=== PATIENT | female | born 1940 | race Caucasian/White ===

== ENCOUNTER 2019-09-05 11:25 | Inpatient (IN) | payer OTHER, MEDICAID ==
[~2019-09-05] VITALS: Ht 165.1 cm; Wt 50.8 kg
[2019-09-05] MEDS ORDERED: CELEXA 10 MG TA10 M1 PO (11:31)
[2019-09-05] MEDS ORDERED: NORCO 10-325 T1 EACH PO (11:31)
[2019-09-05] MEDS ORDERED: NORVASC 2.5 MG2.5 M1 PO (11:31)
[2019-09-05] MEDS ORDERED: TRAZODONE 150150 M1 PO (11:31)
[2019-09-05] MEDS ORDERED: BACLOFEN5 MG PO (11:31)
[2019-09-05 11:38] VITALS: BP 223/78
[2019-09-05 11:57] LABS: ABSOLUTE EOSINOPHILS 0.1 thou/uL (0.0-0.7); ABSOLUTE LYMPHOCYTES 1.3 thou/uL (0.8-5.3); ABSOLUTE MONOCYTES 0.5 thou/uL (0.0-1.2); ABSOLUTE NEUTROPHILS 5.8 thou/uL (1.6-8.1); BASOPHILS 0.4 %; EOSINOPHILS 1.4 %; HEMATOCRIT 42.9 % (37.0-47.0); HEMOGLOBIN 14.6 gm/dL (12.0-15.0); MCH 33.4 pg (26.0-34.0); MCV 98.4 fL (80.0-100.0); MONOCYTES 6.3 %; MPV 7.7 fl. (7.2-11.1); NUCLEATED RBCS 0 /100WBC; PLATELET COUNT* 257 thou/uL (150-400); POLYS 74.9 %; RBC 4.36 mil/uL (4.20-5.00); RDW-CV 12.9 % (10.5-14.5); WBC 7.7 thou/uL (4.0-11.0)
[2019-09-05 12:07] LABS: URINE BILIRUBIN NEGATIVE (Negative); URINE BLOOD TRACE (Negative); URINE CLARITY CLEAR; URINE COLOR YELLOW; URINE GLUCOSE-RANDOM NEGATIVE (Negative); URINE KETONES TRACE (Negative); URINE LEUKOCYTES-REFLEX NEGATIVE (Negative); URINE NITRITE-REFLEX NEGATIVE (Negative); URINE PROTEIN TRACE (Negative); URINE SPECIFIC GRAVITY 1.015 (1.005-1.030); URINE UROBILINOGEN 0.2 E.U./dl (0.2-1.0)
[2019-09-05 12:09] LABS: CALCIUM 9.5 mg/dL (8.5-10.1); CREATININE 0.6 mg/dL (0.6-1.3); POTASSIUM 3.4 mmol/L (3.5-5.1)
[2019-09-05 12:19] LABS: ALBUMIN 4.4 g/dL (3.4-5.0); TOTAL BILIRUBIN 0.7 mg/dL (<0.1-1.0); TOTAL PROTEIN 7.8 g/dL (6.4-8.2)
[2019-09-05 15:36] VITALS: BP 168/78
[2019-09-05 16:15] VITALS: BP 173/74
[2019-09-05 20:10] VITALS: BP 187/64
[2019-09-06] VITALS: BP 169/63
[2019-09-06 04:04] VITALS: BP 157/53
[2019-09-06 08:00] VITALS: BP 171/85
[2019-09-06 11:55] VITALS: BP 132/55
[2019-09-06 13:22] LABS: CALCIUM 9.7 mg/dL (8.5-10.1); CREATININE 0.6 mg/dL (0.6-1.3); MAGNESIUM 2.3 mg/dL (1.8-2.4); POTASSIUM 3.7 mmol/L (3.5-5.1)
[2019-09-07] VITALS: BP 138/55
[2019-09-07 09:23] VITALS: BP 127/55
[2019-09-07 16:00] VITALS: BP 125/48
[2019-09-08] VITALS: BP 118/49
[2019-09-08 08:43] VITALS: BP 126/46
[2019-09-08 16:00] VITALS: BP 145/39
[2019-09-08 21:43] VITALS: BP 139/40
[2019-09-09 07:30] VITALS: BP 153/77
[2019-09-09 11:35] LABS: ABSOLUTE BASOPHILS 0.1 thou/uL (0.0-0.2); ABSOLUTE EOSINOPHILS 0.2 thou/uL (0.0-0.7); ABSOLUTE LYMPHOCYTES 1.3 thou/uL (0.8-5.3); ABSOLUTE MONOCYTES 0.5 thou/uL (0.0-1.2); ABSOLUTE NEUTROPHILS 5.7 thou/uL (1.6-8.1); BASOPHILS 1.5 %; EOSINOPHILS 2.3 %; HEMATOCRIT 39.4 % (37.0-47.0); HEMOGLOBIN 13.3 gm/dL (12.0-15.0); LYMPHOCYTES 16.1 %; MCH 32.8 pg (26.0-34.0); MCHC 33.7 g/dL (28.0-37.0); MCV 97.5 fL (80.0-100.0); MONOCYTES 6.3 %; MPV 7.6 fl. (7.2-11.1); NUCLEATED RBCS 0 /100WBC; PLATELET COUNT* 234 thou/uL (150-400); POLYS 73.8 %; RBC 4.04 mil/uL (4.20-5.00); RDW-CV 12.9 % (10.5-14.5); WBC 7.8 thou/uL (4.0-11.0)
[2019-09-09 11:39] LABS: URINE BILIRUBIN NEGATIVE (Negative); URINE BLOOD TRACE (Negative); URINE CLARITY CLEAR; URINE COLOR YELLOW; URINE GLUCOSE-RANDOM NEGATIVE (Negative); URINE KETONES NEGATIVE (Negative); URINE LEUKOCYTES-REFLEX NEGATIVE (Negative); URINE NITRITE-REFLEX NEGATIVE (Negative); URINE PROTEIN NEGATIVE (Negative); URINE SPECIFIC GRAVITY <= 1.005 (1.005-1.030); URINE UROBILINOGEN 0.2 E.U./dl (0.2-1.0)
[2019-09-09 11:45] LABS: CALCIUM 9.4 mg/dL (8.5-10.1); CREATININE 0.5 mg/dL (0.6-1.3); MAGNESIUM 2.2 mg/dL (1.8-2.4); POTASSIUM 4.4 mmol/L (3.5-5.1)
[2019-09-09 16:00] VITALS: BP 164/63
[2019-09-09 19:50] VITALS: BP 111/72
[2019-09-10 07:04] VITALS: BP 118/45
[2019-09-10 16:00] VITALS: BP 128/44
[2019-09-10 19:30] VITALS: BP 116/45
[2019-09-11 07:30] VITALS: BP 110/56
[2019-09-11] MEDS ORDERED: COZAAR 25 MG TA25 M1 PO (11:47)
[2019-09-11] MEDS ORDERED: FLOMAX0.4 MG PO (11:48)
[2019-09-11] MEDS ORDERED: DUONEB INH (11:50)
[2019-09-11] MEDS ORDERED: FOLIC ACID1 MG PO (11:50)
[2019-09-11] MEDS ORDERED: LEVSIN0.125 MG PO (11:51)
[2019-09-11] MEDS ORDERED: K-DUR 20 MEQ T20 MEQ PO (11:51)
[2019-09-11] MEDS ORDERED: CLONAZEPAM 0.50.5 M1 PO (11:51)
[2019-09-11] MEDS ORDERED: NAMENDA 5 MG TAB5 M1 PO (11:52)
[2019-09-11] MEDS ORDERED: NICOTINE TRANSD14 M1 TRANSDERM (11:52)
[2019-09-11] MEDS ORDERED: PULMICORT0.25 MG/2 INH (11:55)
[2019-09-11] MEDS ORDERED: ACETAMINOPHEN325 M1 PO (12:16)
--- NOTE | 2019-09-11 13:45 | EKG ---
[place] [address] ELECTROCARDIOGRAM REPORT Name: BHARTI TERRAZAS Room: [address] ADM IN M.R.#: [id number] Admission: 09/05/19 Attend Phys: Armand Winters Discharge: Date of : 42 Date of Service: 09/09/191909 Report #: [id number] THIS REPORT FOR: cc: Roverto Bowen Bradley L. DO Holkins, John M. MD [facility] ~ THIS REPORT FOR: //name// [facility] Test Date: 2019-09-09 Test Time: 19:10:29 Pat Name: BHARTI TERRAZAS Department: Room: [address] Gender: F Applied Mathematician: Nakul Fernandez : 1940 Requested By: Armand Winters Order Number: [id number] MD: Flaquito Medina Measurements Intervals [place] Rate: 121 P: 16 WV: 194 QRS: 52 QRSD: 94 T: -90 QT: 299 QTc: 425 Interpretive Statements Sinus tachycardia Anteroseptal infarct, old possible Repol abnrm suggests ischemia, diffuse leads Compared to ECG 09/05/2019 11:36:55 Myocardial infarct finding now present Early repolarization now present Possible ischemia now present Sinus arrhythmia no longer present Ventricular premature complex(es) no longer present First degree AV block no longer present Electronically Signed On 09-10-2019 12:49:46 SPEED BELT SANDER TENDER by Flaquito Medina [email or web address] <ELECTRONICALLY SIGNED> By: Flaquito Medina MD, [facility] 09/10/19 1249 09 09 Flaquito Medina MD, [facility] /EPI
--- NOTE | 2019-09-11 13:55 | EKG ---
[place] [address] ELECTROCARDIOGRAM REPORT Name: BHARTI TERRAZAS Room: [address] ADM IN M.R.#: [id number] Admission: 09/05/19 Attend Phys: Armand Winters Discharge: Date of : 42 Date of Service: 09/05/19 1136 Report #: [id number] THIS REPORT FOR: cc: Roverto Bowen Bradley L. DO Biggs, F. Douglas MD [facility] THIS REPORT FOR: //name// [facility] ED Test Date: 2019-09-05 Test Time: 11:36:55 Pat Name: BHARTI TERRAZAS Department: Room: [facility] Gender: F Contaminated Land Consultant: GLADIS : 1940 Requested By: Sha Mason Order Number: [id number] MD: Tommy Kennedy Measurements Intervals [place] Rate: 81 P: 77 DC: 235 QRS: 64 QRSD: 102 T: 58 QT: 382 QTc: 444 Interpretive Statements Sinus arrhythmia Ventricular premature complex Prolonged DC interval Probable left ventricular hypertrophy No previous ECG available for comparison Electronically Signed On 09-05-2019 14:33:34 TRAUMA DOCTOR by Tommy Kennedy [email or web address] <ELECTRONICALLY SIGNED> By: Steffanie Kennedy MD, [facility] 09/05/19 1433 1136 1136 Steffanie Kennedy MD, [facility] /EPI
[2019-09-11 16:00] VITALS: BP 131/51
--- NOTE | 2019-09-11 17:40 | CARDNUC ---
[place] [address] CARDIAC NUCLEAR IMAGING REPORT Name: BHARTI TERRAZAS Room: [address] IN .R.#: [id number] Admission: 09/05/19 Attend Phys: Armand Winters Discharge: Date of : 42 Date of Service: 09/11/19 1739 Report #: [id number] THIS REPORT FOR: cc: Roverto Bowen Bradley L. DO Liston,Chinedu Poe MD [facility] ~ APPROVED REPORT Study performed: 09/10/2019 10:08:00 Indication: hypertensive emergency, Chest pain Patient Location: In-Patient Room #: [facility] Stress Tech: Lisset Haley Stress Nurse: Angie Fajardo RN Ht: 5 ft 5 in Wt: 111 lbs BSA: 1.54 m2 BMI: 18.46 Medical History Medical History: COPD, HTN Medications: amlodipine, losartan, k dur labetolol Allergies: No known drug allergies Cardiac Risk Factors: Age, HTN, Tobacco History (Current/Recent) Exercise History: Sedentary Resting Data Rest SPECT myocardial perfusion imaging was performed in supine position 30 minutes following the intravenous injection of 12.0 mCi of Tc-99m Sestamibi. Time of rest injection: 1240 Date: 09/10/2019 Administration Route: IV Administration Site: Left Arm Pharmacologic Stress Pharmacologic stress test was performed by injecting Regadenoson 0.4 mg IV push over 10-15 seconds immediately followed by the intravenous injection of 36.0 mCi of Tc-99m Sestamibi. Time of stress injection: 1210 Date: 09/11/2019 Administration Route: IV Administration Site: Left Arm Gated Stress SPECT was performed 60 [place] [address] CARDIAC NUCLEAR IMAGING REPORT Name: BHARTI TERRAZAS Room: [address] IN M.R.#: [id number] Admission: 09/05/19 Attend Phys: Armand Winters Discharge: Date of : 42 Date of Service: 09/11/19 1739 Report #: [id number] The images were gated to evaluate regional wall motion and calculate left ventricular ejection fraction. Stress Test Details Stress Test: Pharmacologic stress testing performed using 0.4 mg of regadenoson per 5 mL given IV over 10 seconds. Reason for pharmacologic stress test: physical limitation. HR Max Heart Rate (APMHR): 143 bpm Resting HR: 95 bpm Target HR (85% APMHR): 121 bpm Max HR Achieved: 106 bpm % of APMHR: 74 Recovery HR: 104 bpm BP Resting BP: 131/66 mmHg Max BP: 96/60 mmHg Recovery BP: 156/74 mmHg ECG Resting ECG: Sinus Rhythm, nonspecific ST-T abnormalities Stress ECG: Sinus Rhythm, nonspecific ST-T abnormalities ST Change: None Arrhythmia: None Recovery ECG: Sinus Rhythm, nonspecific ST-T abnormalities Recovery ST Change: None Recovery Arrhythmia: None Clinical Reason for Termination: Completed protocol Exercise duration: 0 min sec Exercise capacity: 1 METs The patient tolerated Lexiscan infusion without significant cardiac symptoms. Nurse Comments pt unsteady on his feet, unable to walk on treadmill Stress ECG Conclusion The baseline 12-lead EKG show sinus rhythm with nonspecific ST segment oppression diffusely. EKGs obtained during and post Lexiscan infusion show sinus rhythm and sinus tachycardia with persistent nonspecific ST segment depression. There were [place] [address] CARDIAC NUCLEAR IMAGING REPORT Name: HADDOCK, [place] Room: [address] IN [facility].#: [id number] Admission: 09/05/19 Attend Phys: Armand Winters Discharge: Date of : 42 Date of Service: 09/11/19 1739 Report #: [id number] Study Quality Study: Good Artifact: No artifact Study Data At rest, the left ventricular ejection fraction was 85%.. Post stress, the left ventricular ejection was 80%.. TID = 1.07. Perfusion Perfusion images obtained at rest and post Lexiscan infusion show uniform uptake of the radioisotope throughout the myocardium. Wall Motion Normal left ventricular wall motion. Nuclear Conclusion ECG Findings: non-diagnostic Clinical Findings: negative for ischemia Nuclear Findings: negative for ischemia Exercise Capacity: not assessed Left Ventricular Function: normal Risk Study: low Myocardial perfusion images show no defect to suggest infarct or ischemia. Left ventricular systolic function appears normal on gated studies. This is a low risk study. <Conclusion> The baseline 12-lead EKG show sinus rhythm with nonspecific ST segment oppression diffusely. EKGs obtained during and post Lexiscan infusion show sinus rhythm and sinus tachycardia with persistent nonspecific ST segment depression. There were no stress-induced arrhythmias. <ELECTRONICALLY SIGNED> By: Chinedu Hagen MD, FACC 09/11/19 1739 1739 1739 Chinedu Hagen MD, FACC /INF
[2019-09-11 21:00] VITALS: BP 121/55
[2019-09-12 07:40] VITALS: BP 123/58
[2019-09-12 15:45] VITALS: BP 134/43
[2019-09-12 20:30] VITALS: BP 124/46
[2019-09-13] VITALS (7 sets, daily range): BP systolic 127–162; BP diastolic 49–52
[2019-09-14 08:00] VITALS: BP 133/47
[2019-09-14] MEDS ORDERED: LEXAPRO 10 MG T10 M2 PO (12:31)
[2019-09-14] MEDS ORDERED: MELATONIN10 M3 PO (12:33)
[2019-09-14] MEDS ORDERED: SENNA PLUS TAB1 EACH PO (12:37)
[2019-09-14] MEDS ORDERED: VITAMIN B12-FO1 EAC1 PO (12:38)
[2019-09-14] MEDS ORDERED: ONDANSETRON HCL4 M2 PO (12:39)
[2019-09-14] MEDS ORDERED: ZOSTRIX56.6 G1 TOP (12:40)
== END 2019-09-14 13:27 | disposition home health service (06) | DRG 917 ==
LOC: M.ERS 11:25 → M.2W 13:09 → M.3W 13:09 → M.TBA-ER 13:09 → M.2W 16:05 → M.3W 09-06 11:57
PROVIDERS: Emergency Medicine Emergency Medical Services; ADMIT Internal Medicine
DX: T42.8X1A Poisoning by antiparkinsonism drugs and other central muscle-tone depressants, accidental (unintentional), initial encounter (principal); G93.41 Metabolic encephalopathy; I16.1 Hypertensive emergency; N13.30 Unspecified hydronephrosis; F03.90 Unspecified dementia, unspecified severity, without behavioral disturbance, psychotic disturbance, mood disturbance, and anxiety; Z60.2 Problems related to living alone; I10 Essential (primary) hypertension; F32.9 Major depressive disorder, single episode, unspecified; F17.210 Nicotine dependence, cigarettes, uncomplicated; J44.9 Chronic obstructive pulmonary disease, unspecified; K59.00 Constipation, unspecified; R07.9 Chest pain, unspecified; M50.30 Other cervical disc degeneration, unspecified cervical region; R33.9 Retention of urine, unspecified; F41.9 Anxiety disorder, unspecified; Z79.899 Other long term (current) drug therapy; Y92.89 Other specified places as the place of occurrence of the external cause; Z79.51 Long term (current) use of inhaled steroids; Z84.1 Family history of disorders of kidney and ureter